=== PATIENT | male | born 2000 | race Asian ===

== ENCOUNTER 2022-09-27 08:01 | Emergency (ER) | payer OTHER ==
[~2022-09-27] VITALS: Ht 167.6 cm; Wt 56.8 kg
[2022-09-27 09:23] VITALS: BP 112/62
== END 2022-09-27 10:25 | disposition home or self-care (01) ==
LOC: M ED 08:01 → EDBD 08:01 → M ED 10:25
DX: S63.501A Unspecified sprain of right wrist, initial encounter (principal); W19.XXXA Unspecified fall, initial encounter; Y92.89 Other specified places as the place of occurrence of the external cause; Y93.89 Activity, other specified; Y99.1 Military activity